=== PATIENT | female | born 1950 | race Caucasian/White ===

== ENCOUNTER 2023-04-12 07:48 | Emergency (ER) | payer OTHER, SELFPAY ==
[2023-04-12] VITALS (8 sets, daily range): BP systolic 148–188; BP diastolic 76–97; PULSE 62–79; RESP 16; TEMP 36.6; O2SAT 91–98; BMI 29.2
--- NOTE | 2023-04-12 08:12 | ED.ABDPAIN ---
HPI - Abdominal Pain General Chief Complaint: Abdominal Pain Stated Complaint: abd pain all night Time Seen by Provider: 04/12/23 08:02 History of Present Illness HPI narrative: History of diverticula, presented to emergency room with sudden onset of left flank pain started approximately midnight to 2:00 a.m. in the morning, throughout the night, patient has not be able to be comfortable, she describes it as ?constant toothache type of pain?. It was 7/, associated with nausea without vomiting, no history of prior kidney stone. No history of pancreatitis diverticulitis. Still has appendix still have gallbladder. In emergency room patient is uncomfortable need to stay up, no evidence of gross hematuria, no fever no chills. Of note, patient is traveling from [place]. Related Data Previous Rx's Medication Instructions Recorded ondansetron 4 mg disintegrating 4 mg PO Q8H PRN nausea and 04/12/23 tablet vomiting 3 days #10 tabs oxycodone-acetaminophen 5 mg-325 1 tab PO Q6H PRN pain #7 tabs 04/12/23 mg tablet (Percocet) tamsulosin 0.4 mg capsule (Flomax) 0.4 mg PO DAILY renal calculus #10 04/12/23 caps Allergies Allergy/AdvReac Type Severity Reaction Status Date / Time pseudoephedrine AdvReac Mild ITCHING Verified 04/12/23 08:29 [From [facility]] Review of Systems Constitutional Constitutional: Reports as per HPI Eyes Eyes: Reports as per HPI Cardiovascular Cardiovascular: Reports as per HPI Respiratory Respiratory: Reports as per HPI Gastrointestinal Gastrointestinal: Reports abdominal pain Genitourinary Genitourinary: Reports as per HPI and Denies dysuria Musculoskeletal Musculoskeletal: Reports system reviewed and no additional complaints, except as documented Integumentary/Breasts Skin/Breast: Reports system reviewed and no additional complaints, except as documented Neurologic Neurologic: Reports system reviewed and no additional complaints, except as documented and Reports as per HPI Patient History Social History Smoking Status: Never smoker Exam Initial Vital Signs Initial Vital Signs: Vital Signs Temperature 97.9 F 04/12/23 07:52 Pulse Rate 79 04/12/23 07:52 Respiratory Rate 16 04/12/23 07:52 Blood Pressure 188/85 H 04/12/23 07:52 Pulse Oximetry 97 04/12/23 07:52 Oxygen Delivery Method Room Air 04/12/23 07:52 Const General: cooperative, healthy appearing and acute distress [facility] Head: normal to inspection, normocephalic and atraumatic Eyes General: Yes appearance normal, both eyes and all related structures Neck Neck: normal visual inspection, full ROM and no meningeal signs Chest Chest: normal inspection of the chest and normal palpation of entire chest wall Resp Effort & Inspection: normal respiratory effort and able to speak in complete sentences Cardio Palpation: normal PMI and abnormal PMI General: bimanual renal exam normal bilaterally Back/Spine/Pelvis Back: normal to inspection Skin General: no rashes or lesions noted and elasticity normal Neuro General: patient awake and patient oriented x3 Extrem General: normal to inspection and full ROM Psych Appearance: well kempt Course Orders Ordered: ED Orders 04/12/23 08:15 Complete Blood Count AUTO DIFF Stat Comprehensive Metabolic Panel Stat Lipase Stat 04/12/23 08:18 CT kidney ureter bladder (KUB) Stat Discontinued Medications Hydromorphone HCl (Hydromorphone 0.5 Mg Inj) 0.5 mg IV NOW ONE Stop: 04/12/23 08:45 Last Admin: 04/12/23 08:47 Dose: 0.5 mg Documented By: AMV Sodium Chloride (Normal Saline 0.9%) 1,000 mls @ 1,000 mls/hr IV BOLUS ONE Stop: 04/12/23 09:09 Last Admin: 04/12/23 08:20 Dose: 1,000 mls/hr Documented By: AMV Morphine Sulfate (Morphine 4 Mg/Ml Inj) 4 mg IV NOW ONE Stop: 04/12/23 08:11 Last Admin: 04/12/23 08:20 Dose: 4 mg Documented By: AMV Ondansetron HCl (Ondansetron 4 Mg/2 Ml Inj) 4 mg IV NOW ONE Stop: 04/12/23 08:11 Last Admin: 04/12/23 08:19 Dose: 4 mg Documented By: AMV Tamsulosin HCl (Tamsulosin 0.4 Mg Capsule) 0.4 mg PO NOW ONE Stop: 04/12/23 09:16 Vital Signs Vital signs: Vital Signs - 8 hr 04/12/23 07:52 04/12/23 08:13 04/12/23 08:14 Temperature 97.9 F Pulse Rate 79 64 Respiratory Rate 16 Blood Pressure 188/85 H 188/97 H Pulse Oximetry 97 94 Oxygen Delivery Method Room Air 04/12/23 08:14 04/12/23 08:34 04/12/23 08:36 Temperature Pulse Rate 66 Respiratory Rate Blood Pressure 168/76 H Pulse Oximetry 94 98 Oxygen Delivery Method 04/12/23 08:36 04/12/23 09:00 04/12/23 09:00 Temperature Pulse Rate 69 69 Respiratory Rate Blood Pressure 148/86 H Pulse Oximetry 92 96 Oxygen Delivery Method MDM - Abdominal Pain Lab Data 04/12/23 08:15 04/12/23 08:15 Labs: Lab Results 04/12/23 Range/Units 08:15 WBC 7.6 (4.5-11.0) X10^3/uL RBC 4.66 (4.0-5.2) X10^6/uL Hgb 14.8 (12.0-16.0) g/dL Hct 43.1 (36-46) % MCV 92.6 (80-100) fL MCH 31.7 (26-34) PG MCHC 34.3 (30-36) % RDW 14.3 (11.6-14.8) % Plt Count 211 (150-400) X10^3/uL Neut % (Auto) 66.5 (50-75) % Lymph % (Auto) 21.1 L (25-40) % Barnes % (Auto) 7.0 (3-14) % Eos % (Auto) 5.0 H (2-4) % Baso % (Auto) 0.4 (0-2) % Neut # (Auto) 5000 (7125-4834) /uL Lymph # (Auto) 1600 (1954-2129) /uL Barnes # (Auto) 500 (0-900) /uL Eos # (Auto) 400 (0-450) /uL Baso # (Auto) 0 (0-100) /uL Sodium 139 (137-145) mmol/L Potassium 4.2 (3.4-5.1) mmol/L Chloride 107 (98-107) mmol/L Carbon Dioxide 24 (22-32) mmol/L BUN 19 H (7-17) mg/dL Creatinine 0.73 (0.52-1.04) mg/dL Estimated GFR > 60 (>60) mL/min BUN/Creatinine Ratio 26.0 H (6-22) Glucose 112 H (80-110) mg/dL Calcium 9.1 (8.4-10.2) mg/dL Total Bilirubin 0.7 (0.2-1.3) mg/dL AST 34 (14-36) IU/L ALT 33 (<35) IU/L Alkaline Phosphatase 82 (38-126) U/L Total Protein 7.4 (6.3-8.2) g/dL Albumin 4.1 (3.5-5.0) g/dL Globulin 3.3 (1.7-4.1) g/dL Albumin/Globulin Ratio 1.2 (1.0-2.8) Lipase 180 (23-300) U/L Point of care testing: Urine Dip Bedside Urine Glucose Negative Bedside Urine Bilirubin - Negative Bedside Urine Ketone - Negative Urine Specific [place] 1.015 Bedside Urine Occult Blood +++ Bedside Urine pH 6.0 Bedside Urine Protein - Negative Bedside Urine Urobilinogen - Negative Bedside Urine Nitrite - Negative Bedside Urine Leukocytes - Negative Esterase Imaging Data CT scan - abdomen/pelvis: Radiologist's Impression: [place] [address] CT Scan Report Signed Patient: Ebony Pérez MR#: [id number] : 1950 Acct:[id number] Age/Sex: 72 / F Date of Service: 04/12/23 Loc: ED Accession Number: [id number] Procedure: CT kidney ureter bladder (KUB) Ordering Provider: Lex Campbell MD PROCEDURE: CT KIDNEY URETER BLADDER (KUB) INDICATIONS: left flank pain with hematuria TECHNIQUE: Axial sections were acquired from the lung bases to the pubic symphysis. Coronal and sagittal reformats were performed. For radiation dose reduction, the following was used: automated exposure control, adjustment of mA and/or kV according to patient size. COMPARISON: None. FINDINGS: Image quality: Excellent. Lung bases: Lung bases are clear. Heart size is normal. Solid organs: Liver: The liver has no mass or intrahepatic biliary ductal dilatation. Biliary: The gallbladder has no gallstones, pericholecystic fluid, gallbladder wall thickening, or surrounding inflammatory change. Pancreas: The pancreas has no mass or ductal dilatation. There is no surrounding inflammation. Spleen: Normal size. There are no masses. Adrenals: No hypertrophy or nodules. Kidneys: The left kidney has a 3 millimeter stone at the UVJ causing moderate left hydronephrosis with left perinephric stranding. The right kidney is normal. Peritoneum and bowel: The distal esophagus and stomach are normal. The small bowel has a normal caliber and appearance. The terminal ileum is normal. The large bowel has diverticulosis without acute diverticulitis. The appendix is normal. The large bowel has a normal caliber and appearance. Nodes and vessels: No retroperitoneal or mesenteric adenopathy by size criteria. The aorta has atherosclerosis with no aneurysmal dilatation. Miscellaneous: No abdominal wall mass or hernia. PELVIS: Genitourinary: The bladder has no wall thickening or mass. No bladder calcifications. Bones: Degenerative changes with no focal abnormality. No vertebral body compression fractures. IMPRESSION: 3 millimeter stone in the left UVJ causing moderate left hydroureteronephrosis. MDM Narrative Medical decision making narrative: 72-year-old female traveling from [place] complaint of sudden onset of left lower quadrant abdominal pain described to be 7/10, there is no history of prior renal calculi. Pain has been consistent throughout the night, based on my examination and history, differential diagnosis include pancreatitis diverticulitis renal calculi UTI acute pyelonephritis, patient is agreeable to have IV insertion blood work IV fluid pain management and medication for nausea and vomiting. Patient is reassessed at 9:20 a.m. a.m. and disclose impression of 3 mm ureteral calculus with obstruction pattern. There is no evidence of UTI, I feel the patient is able to pass the stone easily after administration of Flomax pain medication and antiemetic, she is instructed to follow with her primary care doctor. Clearly if symptoms worsen over the next few days, she is to return to emergency for further investigation of the stone. She is accompanied by her at bedside at the time of discharge instruction. All questions addressed, she is stable at time of discharge, Discharge Plan Departure Patient Disposition: Home Clinical Impression: Calculus, ureteral Instructions: DI for Kidney Stones Activity Restrictions/Additional Instructions: no restriction Prescriptions: New oxycodone-acetaminophen [Percocet] 5-325 mg tablet 1 tab PO Q6H PRN (Reason: pain) Qty: 7 0RF tamsulosin [Flomax] 0.4 mg capsule 0.4 mg PO DAILY Qty: 10 0RF ondansetron 4 mg tablet,disintegrating 4 mg PO Q8H PRN (Reason: nausea and vomiting) 3 Days Qty: 10 0RF Stand Alone Forms: Patient Portal/API
--- NOTE | 2023-04-12 08:18 | DI.CT.S_ITS ---
PROCEDURE: CT KIDNEY URETER BLADDER (KUB) INDICATIONS: left flank pain with hematuria TECHNIQUE: Axial sections were acquired from the lung bases to the pubic symphysis. Coronal and sagittal reformats were performed. For radiation dose reduction, the following was used: automated exposure control, adjustment of mA and/or kV according to patient size. COMPARISON: None. FINDINGS: Image quality: Excellent. Lung bases: Lung bases are clear. Heart size is normal. Solid organs: Liver: The liver has no mass or intrahepatic biliary ductal dilatation. Biliary: The gallbladder has no gallstones, pericholecystic fluid, gallbladder wall thickening, or surrounding inflammatory change. Pancreas: The pancreas has no mass or ductal dilatation. There is no surrounding inflammation. Spleen: Normal size. There are no masses. Adrenals: No hypertrophy or nodules. Kidneys: The left kidney has a 3 millimeter stone at the UVJ causing moderate left hydronephrosis with left perinephric stranding. The right kidney is normal. Peritoneum and bowel: The distal esophagus and stomach are normal. The small bowel has a normal caliber and appearance. The terminal ileum is normal. The large bowel has diverticulosis without acute diverticulitis. The appendix is normal. The large bowel has a normal caliber and appearance. Nodes and vessels: No retroperitoneal or mesenteric adenopathy by size criteria. The aorta has atherosclerosis with no aneurysmal dilatation. Miscellaneous: No abdominal wall mass or hernia. PELVIS: Genitourinary: The bladder has no wall thickening or mass. No bladder calcifications. Bones: Degenerative changes with no focal abnormality. No vertebral body compression fractures. IMPRESSION: 3 millimeter stone in the left UVJ causing moderate left hydroureteronephrosis. Dictated by: Dheeraj Lindo M.D. on 04/12/2023 at 8:39 Approved by: Dheeraj Lindo M.D. on 04/12/2023 at 8:47
[2023-04-12] MEDS: ONDANSETRON 4 MG/2 ML INJ IV (08:19)
[2023-04-12] MEDS: MORPHINE 4 MG/ML INJ IV (08:20)
[2023-04-12] MEDS: SODIUM CHLORIDE 0.9% 1,000 ML 1000 ML IV (08:20)
[2023-04-12 08:22] LABS: Add Manual Diff / Slide Review NO; Basophils Absolute Auto 0 /uL (0-100); Basophils Percent Auto 0.4 % (0-2); Eosinophils Absolute Auto 400 /uL (0-450); Hematocrit 43.1 % (36-46); Hemoglobin 14.8 g/dL (12.0-16.0); Lymphocytes Absolute Auto 1600 /uL (1100-4500); Lymphocytes Percent Auto 21.1 % (25-40); Mean Corpuscular HGB Conc 34.3 % (30-36); Mean Corpuscular Hemoglobin 31.7 PG (26-34); Mean Corpuscular Volume 92.6 fL (80-100); Monocytes Absolute Auto 500 /uL (0-900); Neutrophils Absolute Auto 5000 /uL (1500-7000); Neutrophils Percent Auto 66.5 % (50-75); Platelet Count 211 X10^3/uL (150-400); Red Blood Cell Count 4.66 X10^6/uL (4.0-5.2); Red Cell Distribution Width 14.3 % (11.6-14.8); White Blood Cell Count 7.6 X10^3/uL (4.5-11.0)
[2023-04-12 08:34] LABS: Alanine Aminotransferase 33 IU/L (<35); Albumin 4.1 g/dL (3.5-5.0); Albumin Globulin Ratio 1.2 (1.0-2.8); Alkaline Phosphatase 82 U/L (38-126); Aspartate Aminotransferase 34 IU/L (14-36); Bilirubin Total 0.7 mg/dL (0.2-1.3); Blood Urea Nitrogen 19 mg/dL (7-17); Calcium 9.1 mg/dL (8.4-10.2); Carbon Dioxide 24 mmol/L (22-32); Chloride 107 mmol/L (98-107); Estimated Glomerular Filt Rate > 60 mL/min (>60); Globulin 3.3 g/dL (1.7-4.1); Glucose 112 mg/dL (80-110); HEMOLYSIS < 15 (0-50); Lipase 180 U/L (23-300); Potassium 4.2 mmol/L (3.4-5.1); Sodium 139 mmol/L (137-145); Total Protein 7.4 g/dL (6.3-8.2)
--- NOTE | 2023-04-12 08:43 | PC.NURSE ---
Pt states that the morphine did not work and she is feeling worse after her CT. Dr. Campbell informed and gave a verbal order for 0.5mg dilaudid
[2023-04-12] MEDS: HYDROMORPHONE 0.5 MG INJ IV (08:47)
[2023-04-12] MEDS: TAMSULOSIN 0.4 MG CAPSULE PO (09:42)
== END 2023-04-12 09:47 | disposition home or self-care (01) ==
PROVIDERS: Emergency Provider Emergency Medicine Emergency Medical Services
DX: N20.1 Calculus of ureter (principal)
CPT/HCPCS: 36415; 74176; 80053; 81003; 83690; 85025; 96361; 96374; 96375; 99284; J1170; J2270; J2405